=== PATIENT | female | born 1970 | race Caucasian/White ===

== ENCOUNTER → 2018-08-19 15:16 | Outpatient (CLI) | payer OTHER, SELFPAY ==
--- NOTE | 2018-08-19 15:18 | BI_ITS ---
MAMMOGRAPHY - BILATERAL SCREENING REASON FOR EXAM: Female, 47 years old. Routine annual screening examination. PERTINENT HISTORY: Mother with breast cancer. Prior left stereotactic breast biopsy. TECHNIQUE: Digital bilateral breast shana (3D mammographic acquisition) in the CC and MLO projections. 2-D mediolateral oblique (MLO) and craniocaudad (CC) views of both breasts were obtained. CAD: Full Field Digital Mammography with Computer Added Detection was performed. COMPARISON: Comparison is made with prior study dated June 25, 2015 and September 12, 2016. FINDINGS: Breast Composition: The breasts are heterogeneously dense, which may obscure small masses. There are no dominant masses or suspicious calcifications. 2 tissue markers are seen in the upper lateral aspect of the left breast. No other significant abnormalities are identified. There has been no significant change since the prior study. BI/SCREENING MAMM (CAD), BILAT IMPRESSION: Stable bilateral screening mammogram. Yearly follow-up mammogram recommended. (A) ASSESSMENT CATEGORY: BIRADS Category 2: Benign. A letter regarding these results will be sent to the patient by the facility within 30 days. Approximately 10% of breast cancers are not detected by mammography. A normal mammogram should not delay biopsy of a clinically suspicious abnormality. [id number] Electronically Signed: Albert Romero MD at 13:31 EDT Tel [phone], Service support ,
== END ==
PROVIDERS: Family Provider Family Medicine; PCP Family Medicine; Referring Provider Obstetrics & Gynecology; Visit Provider Obstetrics & Gynecology
DX: Z12.31 Encounter for screening mammogram for malignant neoplasm of breast (principal)
CPT/HCPCS: 77063; 77067

== ENCOUNTER 2018-10-18 09:30 | Outpatient (RCR) | payer OTHER, SELFPAY ==
--- NOTE | 2017-12-17 15:44 | MASS.EVAL_ITS ---
Massage Therapy Evaluation: Initial Evaluation Date: 12/17/2017 SUBJECTIVE: Marisa is a 47 year old female who was referred to the [facility] facility for a massotherapy evaluation by Dr. Todd Kimble with the diagnosis of migraine headaches. Marisa presents today with the symptoms of tension and pain in her neck shoulders and middle back. She reports having a medical history of migraines 4-5 a week several times a year. She has been hospitalized several times in the past due to migraines. She complains of neck tension and pain that radiates down her neck. She reports having minimal limitations during her daily activities currently. OBJECTIVE: Upon observation Marisa has poor posture with her head forward and shoulders forward from the neutral position in sitting and standing. After examination and palpation I found Marisa to have very high muscle tension with tenderness and myofascial restrictions in her sub occipitals, trapezius, rhomboids, scalenes and thoracic paraspinals. Her hips and lumbar region were also tight with tender points. The first treatment consisted of a one hour massage to her upper body with myofascial release, muscle stripping, trigger point compression techniques, and cervical manual traction. ASSESSMENT: I feel that Marisa is a good candidate for massotherapy at this time. She had a favorable response to the first treatment with reduction in her muscle aches, pain and tension. She also had improvement in her cervical flexibility. PLAN: The plan of care was reviewed with the patient. The patient is to be seen on as needed basis for a total of ten sessions with the recommendation of once every four weeks for a one hour treatment.
--- NOTE | 2018-10-23 12:11 | DS.PCM_ITS ---
Massage Therapy Discharge Summary: Discharge Date: 10/23/2018 Marisa was seen for a massotherapy evaluation on 12/17/2017 with the diagnosis of migraines. She was treated with ten sessions of massage therapy consisting of deep pressure soft tissue techniques, myofascial release and trigger point compression to her cervical, thoracic, lower back, upper extremities and hips. Marisa responded well to the therapy by reporting decreased tension and pain throughout her head, neck, shoulders, lower back and hips. Her goals for therapy were met throughout the treatment sessions. At this time this patient is being discharged from our care at [facility] facility.
== END 2018-10-18 19:00 | disposition home or self-care (01) ==
LOC: MASS 09:30
PROVIDERS: Family Provider Family Medicine; PCP Family Medicine; Visit Provider Family Medicine
DX: G43.909 Migraine, unspecified, not intractable, without status migrainosus (principal)
CPT/HCPCS: 97124

== ENCOUNTER → 2019-03-11 07:09 | Outpatient (CLI) | payer OTHER, SELFPAY ==
--- NOTE | 2019-03-11 11:50 | NEURO ---
NCS and/or EMG Patient Report Ordering Doctor: Edwin Flores DATE OF SERVICE: 03/11/19 This is a right upper extremity nerve conduction study performed on this 48-year-old female with a history of paresthesias in the third fourth and fifth digits of the right hand. There is no neck pain and the patient is healthy otherwise. Right upper extremity sensory and motor nerve conduction studies performed demonstrating moderate to severe prolongation of the median motor and sensory distal latencies with preservation of conduction velocities and amplitudes. The ulnar motor and sensory and the radial sensory responses are normal. The median and ulnar F-wave latencies are preserved. Impression is a abnormal nerve conduction study of the right upper extremityconsistenet with cts
--- NOTE | 2019-03-11 11:53 | NEURO_ITS ---
NCS and/or EMG Patient Report Ordering Doctor: Edwin Flores DATE OF SERVICE: 03/11/19 This is a right upper extremity nerve conduction study performed on this 48-year-old female with a history of paresthesias in the third fourth and fifth digits of the right hand. There is no neck pain and the patient is healthy othe rwise. Right upper extremity sensory and motor nerve conduction studies performed demonstrating moderate to severe prolongation of the median motor and sensory distal latencies with preservation of conduction velocities and amplitudes. The ulnar motor and sensory and the radial sensory responses are normal. The median and ulnar F-wave latencies are preserved. Impression is a abnormal nerve conduction study of the right upper extremityconsistenet with cts
--- NOTE | 2019-03-11 11:53 | NEURO ---
NCS and/or EMG Patient Report Ordering Doctor: Rich Rg Jr. DATE OF SERVICE: 03/11/19 This is a right upper extremity nerve conduction study performed on this 54-year-old female with symptoms in her right hand for 7 years, worse at night, no neck pain or history of diabetes. Right upper extremity sensory and motor nerve conduction studies performed. The median motor and sensory distal latency is prolonged with preservation of the amplitudes and conduction velocities. The ulnar motor and sensory and radial sensory responses are normal. The median F wave is mildly prolonged compared to the ulnar f wave. Impression this is an abnormal nerve conduction study of the right upper extremity consistent with moderate carpal tunnel syndrome at the right wrist.
--- NOTE | 2019-03-11 11:55 | NEURO ---
NCS and/or EMG Patient Report Ordering Doctor: Dorcas Tenorio DATE OF SERVICE: 03/11/19 This is a bilateral upper extremity nerve conduction study performed on this 46-year-old female with a history of weakness and pain in her hands for 6 months. Bilateral upper extremity sensory and motor nerve conduction studies were performed. There is severe prolongation of the right median motor distal latency with severe reduction of amplitude and conduction velocity and moderate prolongation of the left median motor distal latency with preservation of amplitude and conduction velocity. The median sensory responses are also prolonged more so on the right side. The ulnar motor and sensory and radial sensory responses are normal. The right median F wave is severely prolonged, the remainder of the F waves bilaterally are normal. Impression this is an abnormal nerve conduction study of the bilateral upper extremities consistent with severe carpal tunnel syndrome of the wrist on the right side, moderate on the left side.
== END ==
PROVIDERS: Family Provider Family Medicine; PCP Family Medicine; Referring Provider Psychiatry & Neurology Neurology; Visit Provider Psychiatry & Neurology Neurology
DX: G56.20 Lesion of ulnar nerve, unspecified upper limb (principal); R20.0 Anesthesia of skin; R20.2 Paresthesia of skin
CPT/HCPCS: 95910

== ENCOUNTER → 2019-04-11 13:28 | Outpatient (CLI) | payer OTHER, SELFPAY ==
--- NOTE | 2019-04-11 13:50 | RAD_ITS ---
STUDY: X-RAY - LUMBAR SPINE REASON FOR EXAM: Female, 48 years old. Low back pain radiating to left hip TECHNIQUE: 6 view(s) of the lumbar spine were obtained. COMPARISON: None FINDINGS: Normal lumbar lordosis. There is no substantial scoliosis. There is a normal alignment of the vertebrae. At L3-L4 L4-L5 there is mild spondylosis. Normal disc space heights. There are bilateral tubal ligation clips. There is a visualized spina bifida occulta at the level of L5 which is a normal variant. There is a rudimentary disc at S1-S2. RAD/L/S Spine Min 4 Views IMPRESSION: Mild degenerative change. Electronically Signed: Carol Duke MD at 16:11 EDT Tel , Service support ,
== END ==
PROVIDERS: Family Provider Family Medicine; PCP Family Medicine; Referring Provider Family Medicine; Visit Provider Family Medicine
DX: M54.5 Low back pain (principal)
CPT/HCPCS: 72110

== ENCOUNTER → 2019-06-04 11:00 | Outpatient (CLI) | payer OTHER, SELFPAY | PROVIDERS: Family Provider Family Medicine; PCP Family Medicine; Visit Provider Family Medicine | DX: R35.0 Frequency of micturition (principal) | CPT/HCPCS: 87086 ==

== ENCOUNTER 2019-06-04 13:00 | Outpatient (RCR) | payer OTHER, SELFPAY ==
--- NOTE | 2019-04-22 12:05 | HP.PTEVAL_ITS ---
Patient's Visit Information ALEKSEY DYE is a 48 year old F referred to Physical Therapy by Todd Kimble MD with a diagnosis of LUMBAR RADICULOPATHY. Date of Evaluation: 04/22/19 Physical Therapist: Jeanne Harris PT, Cert MDT - Visit Plan Frequency: 2-3x /Week Duration: 4-6 Weeks Plan: LUMBAR MODALITIES NEEDED. MCKENZIES' EXTENSION PRINCIPLE OF TREATMENT. POSTURE CORRECTION/STRENGTHENING, INSTRUCTION IN APPROPRIATE BODY MECHANICS AND ACTIVITY MODIFICATIONS. DLS STARTING WITH A NEUTRAL SPINE PROGRESSING ROM TOLERATED. ROBERT LE ROM, STRETCHING AND STRENGTHENING. HEP INSTRUCTION. 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 Disability: NO. Present symptoms: LOW BACK, LEFT BUTTOCK, WRAPS AROUND INNER THIGH (GROIN), [place] LEG AND LEFT FOOT HAS STARTED TO GO NUMB. FOOT NUMBNESS COMES AND GOES BUT ACHE IN THIGH IS ALWAYS THERE. Present since: ABOUT 3-4 WEEKS AGO BEFORE . Pain Scale: WORST 9/10, LEAST 2/10. Currently: 2/10. Commenced as a result of: PRESSURE WASHING HOUSE, SANDING DECK, STAINING DECK AND LAYING MULCH ALL IN A FEW DAYS. Symptoms at onset: LEFT BUTTOCK. Worse: PULLING PATIENTS FROM CART TO BED, BENDING, LIFTING, PUSHING CARTS DOWN THE MELCHOR, WORK, PUSH MOWING, GOING UP STEPS. Better: LYING ON THE FLOOR ON STOMACH AND STRECHING BACKWARDS, MEDROL DOSE MAQRUES HELPED A LOT, ANTIINFLAMMATORY, TENS, ICE. Disturbed sleep: YES. Previous history/Previous treatment: ONE OTHER EPISODE OF BACK PAIN THAT WAS SIMILAR BUT PAIN WENT DOWN THE BACK OF ONE OF HER LEGS - GOT BETTER WITH TIME - ABOUT 10 YEARS AGO. Coughing/sneezing/straining: NO. Gait: MUCH SLOWER THAN NORMAL. IT HURTS WHEN I WALK. LIMPING ON LLE. Difficulty initiating urinatin: NO. Accidents: NO. Unexplained weight loss: NO. Imaging: LUMBAR X-RAYS OF BACK AT [facility] - ARTHRITIC CHANGES AT L34 AND NARROWING L5S1. EXTRA LUMBAR VERTEBRAE. SPINA BIFIDA OCCULTA. PMH: HISTORY OF NECK PROBLEMS. MITRAL VALVE PROLAPSE. MIGRAINES. Recent major surgery: NO. PLOF (Prior Level of Function): UNLIMITED. OTHER: PATIENT REPORTS SHE HAS BEEN GOING TO A [facility] HER WHOLE LIFE FOR MIGRAINES. ALSO GETS MASSAGE ONCE A MONTH. LONG HISTORY OF [facility] WORKING ON LOW BACK. HAS HAD TWO CHIROPRACTIC ADJUSTMENTS ON LOW BACK THIS EPISODE AND PLANS TO CONTINUE. THINKS THE [facility]IROP[facility]CTOR IS HELPING BACK. - Objective Sitting/Standing Posture: FAIR. Lordosis: NORMAL. Lateral shift: NO. Relevant shift: N/A. Active Correction of posture: BETTER. Other Observations: INDEP GAIT WITH DECREASED CADANCE AND MILD LIMP ON RIGHT LE. DECREASED ROBERT STRIDE LENGTH. Motor deficit: LEFT HIP 4/5. RIGHT HIP 5/5. OTHERWISE LE'S 5/5. Sensory deficit: NO. ROM deficit: ROBERT LE'S WFL. Reflexes: 2/3 ROBERT LE'S. Dural Signs: POSITIVE ROBERT LE'S LEFT > RIGHT. Lumbar mvmt loss: flex - MOD. ext - MOD. R SG - MOD. L SG - MOD. PATIENT REPORTS INCREASED PAIN WITH LUMBAR FLEXION TESTING. Core strength: FAIR. Palpation: ACUTE TENDERNESS [id number] REGIONS - Goals Goal 1:: DECREASE C/O BACK AND LEFT LE SX'S. Goal Time Frame: 4-6 Weeks Goal 2:: IMPROVE PERSONAL CARE, LIFTING, WALKING, SITTING, STANDING, SLEEP, SOCIAL LIFE, TRAVEL AND YARD WORK/HOMEMAKING FUNCITON. Goal Time Frame: 4-6 Weeks Goal 3:: INSTRUCT IN PROPHYLAXIS Goal Time Frame: 4-6 Weeks - Rehabilitation Potential Rehabilitation Potential: Fair - Anticipated Interventions Patient/Client Instruction: Educate patient on: Condition, Plan of Care, Risk Factors, Benefits of Fitness Program For the Purpose of:: To improve self management Therapeutic Exercise to Include: Strength training, Body mechanics, Postural training, Flexibilty training, In an aquatic setting, Dynamic Lumbar Stabilization, Stanislav Exercises Comment: CONSIDER AQUATIC THERAPY For the Purpose of:: To decrease pain, To improve muscle performance and motor function, To increase tolerance to activity/condition/position, To improve ability of physical actions for home/community/work/leisure Manual Therapy Techniques to Include: Mobilization For the Purpose of:: To increase ROM TENS: Yes IF ES: Yes Cryotherapy (ice pack, ice massage): Yes Thermo therapy (hot pack): Yes Ultrasound (thermal/non thermal): Yes For the Purpose of:: To decrease pain, To decrease swelling/inflammation, To improve nutrient delivery to tissue Thank you for the opportunity to evaluate your patient. For Medicare and Medicare HMO plans, please review the plan of care and approve it. It will need to be FAXED BACK to us at [phone] for Medicare purposes. For Medicare only, by signing this I certify the plan of care. Please let me know if there are questions or concerns regarding this plan of care. Physician Signature: Date:
--- NOTE | 2019-06-04 13:38 | HP.PTDCSUM ---
HP - PT D/C Summary It has been my pleasure to treat ALEKSEY DYE under orders from Todd Kimble MD, for the diagnosis of LUMBAR RADICULOPATHY for a total of 9 visit(s). Discharge Date: Please see the following information for a summary of their discharge status. - Subjective Subjective: PATIENT REPORTS SHE IS DOING GOOD. ONLY A LITTLE BIT OF BACK PAIN AT THE END OF A SHIFT SOMETIMES. UP TO 3/10 LEFT LOW BACK PAIN AT ITS WORST NOW. - Pain LOW BACK Pain Intensity (Out of 10): 0 LEFT HIP Pain Intensity (Out of 10): 0 - Overall Improvement % Improvement: 95 - Objective Objective/Function: ALL GOALS MET. PATIENT HAS MADE GREAT PROGRESS WITH PT HOWEVER SHE DOES STILL HAVE MILD POSITIVE LLE DURAL SIGN AND INTERMITTENT PAIN IN HER LEFT LOW BACK/HIP/THIGH THAT SHE DID NOT HAVE BEFORE THIS ONSET OF PAIN. SHE WILL MONITOR AND FOLLOW UP WITH DR. LEIVA AGAIN IF IT DOES NOT CONTINUE TO IMPROVE AND RESOLVE. PATIENT COMMUNICATED A GOOD UNDERSTANDING OF ALL INSTRUCTIONS AFTER GIVEN. LUMBAR ROM IS WFL ALL PLANES NOW BUT SHE DOES HAVE MINIMAL MVMT LOSS INTO FLEXION THAT SHE REPORTS IS NORMAL FOR HER. LUMBAR OSWESTRY HAS IMPROVED FROM 19 TO 4 - Goals Goal 1:: DECREASE C/O BACK AND LEFT LE SX'S. Goal 2:: IMPROVE PERSONAL CARE, LIFTING, WALKING, SITTING, STANDING, SLEEP, SOCIAL LIFE, TRAVEL AND YARD WORK/HOMEMAKING FUNCITON. Goal 3:: INSTRUCT IN PROPHYLAXIS - Plan Plan: D/C TO INDEP EX. PATIENT AGREEABLE. - D/C Information If there are questions or concerns regarding this patient's physical therapy, please feel free to call me at [phone]. Thank you for the referral of this patient. Sincerely, Jeanne Harris, PT, Cert MDT
== END 2019-06-04 19:00 | disposition home or self-care (01) ==
LOC: PT 13:00
PROVIDERS: Family Provider Family Medicine; PCP Family Medicine; Referring Provider Family Medicine; Visit Provider Family Medicine
DX: M54.16 Radiculopathy, lumbar region (principal)
CPT/HCPCS: 97014; 97035; 97161; 97530; G0283

== ENCOUNTER → 2019-06-17 07:09 | Outpatient (CLI) | payer SELFPAY ==
--- NOTE | 2019-06-17 07:14 | CT_ITS ---
STUDY: CARDIAC CALCIUM SCORING - CT CHEST REASON FOR EXAM: Female, 48 years old. Family history of heart disease, screening RADIATION DOSAGE (If Supplied By Facility): CTDIvol = ( 12.19 ) mGy, DLP = ( 170.66 ) mGycm TECHNIQUE: Axial non-enhanced images were acquired through the heart for the sole purpose of measuring coronary artery calcium. Individualized dose optimization techniques were used for this CT. COMPARISON: None. FINDINGS: Visualized surrounding anatomy: 4 mm noncalcified nodule in the anterior left lower lobe is seen on image 13 of series 3. There is a calcified granuloma in the right lower lobe on image 27 of series 3. No additional pulmonary nodule detected. Left Main Coronary Artery: 0 Left Anterior Descending Artery: 0 Left Circumflex Artery: 0 Right Coronary Artery: 0 Other: 0 Total Calcium Score: 0 CT/Limited Chest CT w/CCTA IMPRESSION: 1. A Calcium Score of 0. No identifiable atherosclerotic plaque. Very low cardiovascular disease risk. 2. 4 mm left lower lobe noncalcified nodule. According to the Fleischner Society recommendations (2017) follow-up chest CT in one year recommended in high risk patients (known neoplasm history, smoking history). In low-risk patients, no specific follow-up per Guidelines. Electronically Signed: Salvador Duarte MD ([place]) at 14:19 EDT , Service support ,
[2019-06-17 07:16] VITALS: BP 125/59; PULSE 66; RESP 18; O2SAT 100; BMI 24.0
--- NOTE | 2019-06-17 19:59 | CA.SCORE ---
Calcium Scoring Date of Study:: 06/17/19 Coronary Calcium Scoring: High-resolution Computed Tomographic imaging of the chest was performed on 06/17/2019 with particular attention paid to the coronary arteries. Images from the examination were analyzed for the presence and extent of coronary artery calcification , using coronary calcium quantification software. The patient tolerated the procedure well and there were no complications. The results of the coronary calcification analysis are provided below. - Findings Left Main (LM): 0 Left Anterior Descending (LAD): 0 Left Circumflex (LCX): 0 Right Coronary Artery (RCA): 0 Total Agatston Score: 0 Percentile Ranking: Percentile rankin%: 50% of people of the same gender/similar age had the same or lower scores Calcium Scoring Interpretation: 0 No identifiable atherosclerotic plaque. Very low cardiovascular disease risk. <5% chance of presence coronary artery disease A Negative Examination 1-10 Minimal Plaque burden. Significant coronary artery disease very unlikely. 11-100 Mild plaque burden. Likely mild or minimal coronary atherosclerosis. 101-400 Moderate plaque burden Moderate non-obstructive coronary artery disease highly likely. Over 400 Extensive plaque burden. High likelihood of at least one significant coronary stenosis (>50% diameter) Calcium Score: 0 Negative Examination - Continue cardiovascular risk factor evaluation and care as deemed appropriate
== END ==
PROVIDERS: Family Provider Family Medicine; PCP Family Medicine; Referring Provider Family Medicine; Visit Provider Family Medicine
DX: Z13.9 Encounter for screening, unspecified (principal)
CPT/HCPCS: 75571; 76380

== ENCOUNTER → 2019-08-28 11:59 | Outpatient (CLI) | payer OTHER, SELFPAY ==
[2019-06-17 07:16] VITALS: BMI 24.0
--- NOTE | 2019-08-28 12:02 | MRI_ITS ---
STUDY: MRI LUMBAR SPINE WITHOUT CONTRAST REASON FOR EXAM: Female, 48 years old. The patient presents with a history of radiculopathy symptoms of the left leg with pain. TECHNIQUE: Standardized fat and water weighted pulse sequences were obtained in the sagittal and axial planes. COMPARISON: X-RAY LUMBAR SPINE-April 11, 2019 FINDINGS: Vertebrae, Alignment and Curvature Vertebrae: There are six non-rib bearing lumbar-like vertebra. For the purpose of this report, the most caudal non-rib bearing vertebra is considered to represent the S1 vertebra, consistent with lumbarization of the first sacral segment. The x-ray examination of April 11, 2019 further discloses a transitional lumbosacral vertebra. Alignment: Normal. Curvature: Normal lordosis. No scoliosis. Thoracic Cord (visualized distal) / Conus Medullaris Normal. Terminates at the at the superior endplate of the L2 vertebra. Disc Space Levels N.B.: Normal level statement indicates: Normal endplates; disc height, signal and morphology; facet joints; central canal, lateral recesses, and intervertebral neuroformina. T12-L1: Normal. (Imaged only in the sagittal plane). L1-L2: Normal. (Imaged only in the sagittal plane). L2-L3: Normal. L3-L4: Normal. L4-L5: Normal. L5-S1: Normal. S1-2: There is lumbarization of the S1 vertebra with a rudimentary desiccated S1-2 intervertebral disc. There is a posterior central disc herniation of the protrusion type (axial T2 series 5, image 5; sagittal T2 series 2, image 7). The disc protrusion measures 4 x 14 mm (AP x transverse), and is producing minimal ventral epidural fat effacement and thecal sac flattening. There remains a large central canal. There is mild bilateral facet arthrosis however the bilateral intervertebral neural foramina are widely patent. There is no demonstrated spondylolisthesis, spondylolysis or marrow pedicle stress phenomena. Sacral Alae: Normal. Retroperitoneum and Paraspinal Structures Kidneys: Partially imaged with no demonstrated abnormality. Aorta: Normal. Inferior Vena Cava: Normal. Lymph Nodes: None visualized. Muscles (Paraspinal): Normal. MRI/Spine Lumbar (Routine) IMPRESSION: 1. There are six non-rib bearing lumbar-like vertebra. For the purpose of this report, the most caudal non-rib bearing vertebra is considered to represent the S1 vertebra, consistent with lumbarization of the first sacral segment. The x-ray examination of April 11, 2019 further discloses a transitional lumbosacral vertebra. 2. S1-2 rudimentary desiccated intervertebral disc with a posterior central disc protrusion producing minimal ventral epidural fat effacement of thecal sac flattening but without neural impingement. Electronically Signed: Rich Jacobo DO at 14:30 EDT Tel , Service support ,
== END ==
PROVIDERS: Family Provider Family Medicine; PCP Family Medicine; Referring Provider Family Medicine; Visit Provider Family Medicine
DX: M51.16 Intervertebral disc disorders with radiculopathy, lumbar region (principal)
CPT/HCPCS: 72148

== ENCOUNTER → 2019-10-01 11:35 | Outpatient (CLI) | payer OTHER, SELFPAY ==
[2019-06-17 07:16] VITALS: BMI 24.0
[2019-10-06 12:07] LABS: Age Gdln ACOG Testing 30-65 (.)
[2019-10-06 16:30] LABS: HPV APTIMA, High Risk Negative (Negative)
[2019-10-06 16:31] LABS: HPV Reflexed? NOT INDICATED
== END ==
PROVIDERS: Visit Provider Obstetrics & Gynecology
DX: Z12.4 Encounter for screening for malignant neoplasm of cervix (principal)
CPT/HCPCS: 88175; G0145

== ENCOUNTER 2019-10-08 08:15 | Outpatient (RCR) | payer OTHER, SELFPAY ==
--- NOTE | 2018-12-11 11:46 | MASS.EVAL ---
Massage Therapy Evaluation: INITIAL EVALUATION: DATE:12/11/2018 PT NAME: ALEKSEY DYE : 1970 V#: [id number] REFERRING PHYS: DR. DEJESUS SUBJECTIVE: ALEKSEY IS A 47 YEAR OLD FEMALE WHOSE CURRENT OCCUPATION IS [employer]. SHE WAS REFERRED TO [facility] FOR A MASSOTHERAPY EVALUATION BY DR. DEJESUS WITH THE DIAGNOSIS OF MIGRAINES AND NECK PAIN. SHE PRESENTS TODAY WITH THE SYMPTOMS OF NECK PAIN AND NUMBNESS IN RIGHT ARM. SHE REPORTED OF NO MIGRAINE TODAY BUT HAS BEEN GETTING LESS, ONLY 3-5 MIGRAINES PER MONTH. THE SYMPTOMS COMMENCED DUE TO OF UNKNOWN FOR THE MIGRAINES AND NECK PAIN OF STRESS. SHE RATES HER OVERALL HEALTH TO BE IN GOOD CONDITION WITH NO LIMITATIONS IN HER DAILY ACTIVITIES UNLESS SHE HAS A MIGRAINE. ALEKSEY IS CURRENTLY TAKING MULTIVITAMIN, CALCIUM, DE/PAY-PRN MEDICATIONS. OBJECTIVE: THE FIRST TREATMENT CONSISTED OF A DEEP TISSUE UPPER BODY MASSAGE. I FOCUSED ON SUBOCCIPITALS, TEMPORALIS, UPPER TRAPEZIUM, LEVATOR, RHOMBOIDS, SCALENES, AND INFRASPINATUS. MUSCLE STRIPPING AND TRIGGER POINT THERAPY WERE PERFORMED. ASSESSMENT: MUSCLE TENSION WAS HIGH IN THE CERVICAL AND THORACIC AREAS. MOST TENDERNESS WITH TRIGGER POINTS WAS THE RIGHT TEMPORALIS, SUBOCCIPITALS, LEVATOR, RHOMBOIDS, AND RIGHT INFRASPINATUS. THE RIGHT INFRASPINATUS DID REFER INTO THE RIGHT ARM NUMBNESS THAT THE PATIENT HAS BEEN EXPERIENCING. OVERALL I FEEL THE MUSCLE TENSION AND STRESS LEVEL DECREASED POST THE MASSAGE. I FEEL THAT ALEKSEY IS A GREAT CANDIDATE FOR MASSOTHERAPY AT THIS TIME. PLAN: THE PLAN OF CARE WAS REVIEWED WITH THE PATIENT. THE PATIENT IS TO BE SEEN ON A REGULAR BASIS FOR A TOTAL OF 10 VISITS FOR ONE HOUR SESSIONS OF MASSOTHERAPY.
--- NOTE | 2018-12-11 11:58 | MASS.EVAL_ITS ---
Massage Therapy Evaluation: INITIAL EVALUATION: DATE:12/11/2018 PT NAME: ALEKSEY DYE : 1970 V#: [id number] REFERRING PHYS: DR. DEJESUS SUBJECTIVE: ALEKSEY IS A 47 YEAR OLD FEMALE WHOSE CURRENT OCCUPATION IS [employer] SHE WAS REFERRED TO [facility] FOR A MASSOTHERAPY EVALUATION BY DR. DEJESUS WITH THE DIAGNOSIS OF MIGRAINES AND NECK PAIN. SHE PRESENTS TODAY WITH THE SYMPTOMS OF NECK PAIN AND NUMBNESS IN RIGHT ARM. SHE REPORTED OF NO MIGRAINE TODAY BUT HAS BEEN GETTING LESS, ONLY 3-5 MIGRAINES PER MONTH. THE SYMPTOMS COMMENCED DUE TO OF UNKNOWN FOR THE MIGRAINES AND NECK PAIN OF STRESS. SHE RATES HER OVERALL HEALTH TO BE IN GOOD CONDITION WITH NO LIMITATIONS IN HER DAILY ACTIVITIES UNLESS SHE HAS A MIGRAINE. ALEKSEY IS CURRENTLY TAKING MULTIVITAMIN, CALCIUM, DE/PAY-PRN MEDICATIONS. OBJECTIVE: THE FIRST TREATMENT CONSISTED OF A DEEP TISSUE UPPER BODY MASSAGE. I FOCUSED ON SUBOCCIPITALS, TEMPORALIS, UPPER TRAPEZIUM, LEVATOR, RHOMBOIDS, SCALENES, AND INFRASPINATUS. MUSCLE STRIPPING AND TRIGGER POINT THERAPY WERE PERFORMED. ASSESSMENT: MUSCLE TENSION WAS HIGH IN THE CERVICAL AND THORACIC AREAS. MOST TENDERNESS WITH TRIGGER POINTS WAS THE RIGHT TEMPORALIS, SUBOCCIPITALS, LEVATOR, RHOMBOIDS, AND RIGHT INFRASPINATUS. THE RIGHT INFRASPINATUS DID REFER INTO THE RIGHT ARM NUMBNESS THAT THE PATIENT HAS BEEN EXPERIENCING. OVERALL I FEEL THE MUSCLE TENSION AND STRESS LEVEL DECREASED POST THE MASSAGE. I FEEL THAT ALEKSEY IS A GREAT CANDIDATE FOR MASSOTHERAPY AT THIS TIME. PLAN: THE PLAN OF CARE WAS REVIEWED WITH THE PATIENT. THE PATIENT IS TO BE SEEN ON A REGULAR BASIS FOR A TOTAL OF 10 VISITS FOR ONE HOUR SESSIONS OF MASSOTHERAPY.
--- NOTE | 2019-10-08 16:05 | DS.PCM_ITS ---
Massage Therapy Discharge Summary: Discharge Date: 10/08/2019 Marisa was seen for a massotherapy evaluation on 12/11/2018 with the headaches and neck pain. She was treated with ten sessions of massage therapy consisting of moderate to deep pressure soft tissue techniques, myofascial release and trigger point compression to her cervical, thoracic, lower back, upper extremities, hips and lower extremities. Mraisa responded well to the therapy by reporting decreased tension and pain throughout his head, neck, shoulders, lower back and hips. Her goals for therapy were met throughout the treatment sessions. At this time this patient is being discharged from our care at [facility] facility.
== END 2019-10-08 19:00 | disposition home or self-care (01) ==
LOC: MASS 08:15
PROVIDERS: Family Provider Family Medicine; PCP Family Medicine; Referring Provider Family Medicine; Visit Provider Family Medicine
DX: G43.909 Migraine, unspecified, not intractable, without status migrainosus (principal)
CPT/HCPCS: 97124

== ENCOUNTER → 2019-10-09 09:26 | Outpatient (CLI) | payer OTHER, SELFPAY ==
[2019-06-17 07:16] VITALS: BMI 24.0
--- NOTE | 2019-10-09 09:31 | BI_ITS ---
MAMMOGRAPHY - BILATERAL SCREENING REASON FOR EXAM: Female, 48 years old. Routine annual screening examination. PERTINENT HISTORY: Mother with breast cancer. Remote left stereotactic biopsy. TECHNIQUE: Digital bilateral breast estefany (3D mammographic acquisition) in the CC and MLO projections. 2-D mediolateral oblique (MLO) and craniocaudad (CC) views of both breasts were obtained. CAD: Full Field Digital Mammography with Computer Added Detection was performed. COMPARISON: Comparison is made with prior study dated August 19, 2018 and September 12, 2016. FINDINGS: Breast Composition: The breasts are extremely dense, which lowers the sensitivity of mammography. There are no dominant masses or suspicious calcifications. 2 tissue markers are seen in the upper lateral portion of the left breast. No other significant abnormalities are identified. There has been no significant change since the prior study. BI/SCREEN MAMM (CAD) W/ESTEFANY BILAT IMPRESSION: Stable bilateral screening mammogram. Yearly follow-up mammogram recommended. (A) ASSESSMENT CATEGORY: BIRADS Category 2: Benign. A letter regarding these results will be sent to the patient by the facility within 30 days. Approximately 10% of breast cancers are not detected by mammography. A normal mammogram should not delay biopsy of a clinically suspicious abnormality. [id number] Electronically Signed: Albert Romero, at 11:28 EST , Service support ,
== END ==
PROVIDERS: Family Provider Family Medicine; PCP Family Medicine; Referring Provider Obstetrics & Gynecology; Visit Provider Obstetrics & Gynecology
DX: Z12.31 Encounter for screening mammogram for malignant neoplasm of breast (principal)
CPT/HCPCS: 77063; 77067

== ENCOUNTER → 2020-05-20 05:57 | Outpatient (CLI) | payer OTHER, SELFPAY ==
[2019-06-17 07:16] VITALS: BMI 24.0
[2020-05-20 08:40] LABS: Magnesium 2.3 mg/dL (1.6-2.6); T4 Free Direct 1.02 ng/dL (0.76-1.46); Thyroid Stim Hormone (TSH) 2.13 uIU/mL (0.358-3.74)
== END ==
PROVIDERS: PCP Family Medicine; Referring Provider Family Medicine; Visit Provider Family Medicine
DX: R55 Syncope and collapse (principal); R60.9 Edema, unspecified; R00.2 Palpitations
CPT/HCPCS: 36415; 83735; 84439; 84443

== ENCOUNTER → 2020-06-16 11:54 | Outpatient (CLI) | payer OTHER, SELFPAY ==
[2020-06-03 14:29] VITALS: BMI 26.6
--- NOTE | 2020-06-16 11:54 | ECHOD_ITS ---
Reason For Study: Arrhythmia Procedure This was a 2D Doppler, Color Flow transthoracic echocardiogram. Exam performed in department. Left Ventricle Normal LV size. Left ventricular systolic function is normal. The estimated ejection fraction is 60 %. No evidence for diastolic dysfunction. No regional wall motion abnormalities noted. Right Ventricle Normal RV size. Normal systolic function. Atria Normal left atrium. Normal right atrium. Mitral Valve Equivocal mitral valve prolapse. Tricuspid Valve Normal tricuspid valve. Aortic Valve Normal aortic valve. Trisinus/trileaflet aortic valve. Pulmonic Valve Normal pulmonic valve. Great Vessels Normal aortic root. The pulmonary artery is normal size. Normal inferior vena cava. Pericardium/Pleural No pericardial effusion. MMode/2D Measurements & Calculations LVIDd: 3.8 cm IVSd: 0.80 cm Ao root diam: 2.5 cm LVIDs: 2.1 cm LVPWd: 1.1 cm LA dimension: 3.1 cm RVDd: 2.3 cm FS: 45.9 % LAV(MOD-bp): 26.1 ml LA A4 area: 12.0 cm2 RA A4 area: 7.6 cm2 LAV(MOD-bp) Indexed: 15.2 ml/m2 LAV(MOD-sp2): 28.2 ml LAV(MOD-sp4): 24.4 ml Time Measurements MV dec time: 0.18 sec Doppler Measurements & Calculations MV E max maverick: 78.5 cm/sec Lat Peak E' Maverick: 8.3 cm/sec Med Peak E' Maverick: 10.3 cm/sec MV A max maverick: 66.8 cm/sec E/E' lat: 9.4 E/E' med: 7.6 MV E/A: 1.2 MV V2 max: 91.2 cm/sec MV P1/2t max maverick: 90.6 cm/sec Ao V2 max: 141.9 cm/sec MV max P.3 mmHg MV P1/2t: 49.9 msec Ao max P.1 mmHg MV V2 mean: 52.2 cm/sec MV dec slope: 531.9 cm/sec2 Ao V2 mean: 96.9 cm/sec MV mean P.3 mmHg MVA(P1/2t): 4.4 cm2 Ao mean P.4 mmHg MV V2 VTI: 18.0 cm Ao V2 VTI: 26.9 cm LV V1 max: 111.3 cm/sec PA V2 max: 100.2 cm/sec TR max maverick: 218.4 cm/sec LV V1 max P.0 mmHg TR max P.1 mmHg LV V1 mean P.6 mmHg LV V1 mean: 74.2 cm/sec LV V1 VTI: 22.4 cm Interpretation Summary Normal LV size. Left ventricular systolic function is normal. The estimated ejection fraction is 60 %. No evidence for diastolic dysfunction. Equivocal mitral valve prolapse. Ordering Physician: Glynn Monique Referring Physician: Todd Kimble Performed By: Juan M Lewis RCS
--- NOTE | 2020-06-16 17:36 | STRESSREP ---
Stress Test Report Exercise stress test. 49-year-old lady with a history of chest pain. Stress protocol: Resting EKG demonstrates normal sinus rhythm with a rate of 75 bpm normal intervals are noted resting blood pressure is 124/80 mmHg. The patient exercised according to regular Flavio protocol for a total duration of 9 minutes. Patient completed stage III of the Flavio protocol. The maximum heart rate attained was 162 bpm which was 94% of maximum predicted heart rate the maximum workload was 10.1 metabolic equivalents. At rest there were no ST or T wave changes noted suggest ischemia. The patient maintained sinus rhythm throughout the recording. The resting blood pressure is 124/80 with a final blood pressure 140/84 mmHg which was a normal response to exercise the rate-pressure product was 22,600. No clinical angina was noted the test was terminated due to dyspnea and attainment of target heart rate. Conclusion: Exercise stress test with no EKG criteria for ischemia at a high workload Excellent functional capacity. No clinical angina noted.
== END ==
PROVIDERS: PCP Family Medicine; Referring Provider Internal Medicine Cardiovascular Disease; Visit Provider Internal Medicine Cardiovascular Disease
DX: I34.1 Nonrheumatic mitral (valve) prolapse (principal); R00.2 Palpitations
CPT/HCPCS: 93017; 93306

== ENCOUNTER → 2020-07-20 15:20 | Outpatient (CLI) | payer OTHER, SELFPAY ==
[2020-06-03 14:29] VITALS: BMI 26.6
--- NOTE | 2020-07-20 15:30 | CT_ITS ---
STUDY: CT CHEST WITHOUT CONTRAST REASON FOR EXAM: Female, 49 years old. PULMONARY NODULE FOLLOW UP RADIATION DOSAGE (If Supplied By Facility): CTDIvol = ( 8.10 ) mGy, DLP = ( 309.52 ) mGycm TECHNIQUE: Transaxial imaging was performed without the administration of intravenous contrast material. Multiplanar coronal and sagittal images were reformatted. Individualized dose optimization techniques were used for this CT. COMPARISON: Comparison is made with prior examination dated 06/17/2019. FINDINGS: Mild prominence of the thyroid gland. Minimal degree of scarring at both lung apices. Calcified granuloma in the anterior aspect of the right lower lobe. Stable partially calcified 4 mm nodule in the anterior left lower lobe. There is no demonstrated pleural abnormality. Normal heart and pericardium. Normal mediastinum. Normal hilar regions. Normal unenhanced pulmonary arteries. Normal aorta arch and descending thoracic aorta. Normal osseous structures. There is no demonstrated abnormality of the visualized upper abdomen. CT/Chest without Contrast IMPRESSION: Stable examination. Electronically Signed: Albert Romero, at 15:47 EDT , Service support ,
== END ==
PROVIDERS: PCP Family Medicine; Referring Provider Family Medicine; Visit Provider Family Medicine
DX: R91.1 Solitary pulmonary nodule (principal)
CPT/HCPCS: 71250

== ENCOUNTER 2020-10-06 09:30 | Outpatient (RCR) | payer OTHER, SELFPAY ==
[2019-06-17 07:16] VITALS: BMI 24.0
--- NOTE | 2019-12-03 14:38 | MASS.EVAL ---
Massage Therapy Evaluation: Initial Evaluation Date: 12/03/2019 /Age: 02 1970, 41 Diagnosis: Migraines Medications: Amovig injection Botox Relpax Goals: Decrease pain Decrease frequency and intensity of PERKINS/Migraine Assessment: Marisa is a good candidate for massage. We have had success managing her symptoms in the past. Plan: To be seen one time per month or PRN for a total of 10 one hour sessions.
--- NOTE | 2020-10-14 11:55 | MASS.DISCH ---
Massage Therapy Discharge Summary: Discharge Date: 10/14/2020 Marisa was seen for a massotherapy evaluation on 12/03/2019 with the diagnosis of migraines. She was treated with eight sessions of massage therapy consisting of deep pressure soft tissue techniques, myofascial release and trigger point compression to her cervical, thoracic, lower back, and hips. Marisa responded well to the therapy by reporting decreased tension and pain throughout her neck, shoulders, lower back and hips. Her goals for therapy were met throughout the treatment sessions. At this time this patient is being discharged from our care at [facility] facility.
== END 2020-10-06 19:00 | disposition home or self-care (01) ==
LOC: MASS 09:30
PROVIDERS: Family Provider Family Medicine; PCP Family Medicine; Referring Provider Family Medicine; Visit Provider Family Medicine
DX: G43.909 Migraine, unspecified, not intractable, without status migrainosus (principal)
CPT/HCPCS: 97124

== ENCOUNTER → 2020-10-12 13:14 | Outpatient (CLI) | payer OTHER, SELFPAY ==
[2020-10-08 12:25] VITALS: BMI 26.7
--- NOTE | 2020-10-12 13:15 | BI_ITS ---
MAMMOGRAPHY - BILATERAL SCREENING REASON FOR EXAM: Female, 49 years old. Routine annual screening examination. PERTINENT HISTORY: Mother with breast cancer. Remote left stereotactic biopsy. TECHNIQUE: Digital bilateral breast estefany (3D mammographic acquisition) in the CC and MLO projections. 2-D mediolateral oblique (MLO) and craniocaudad (CC) views of both breasts were obtained. CAD: Full Field Digital Mammography with Computer Added Detection was performed. COMPARISON: Comparison is made with prior examination dated 10/09/2019 and 08/19/2018. FINDINGS: Breast Composition: The breasts are extremely dense, which lowers the sensitivity of mammography. There are no dominant masses or suspicious calcifications. Once again, 2 tissue markers are seen in the upper quadrant of the left breast. No other significant abnormalities are identified. There has been no significant change since the prior study. BI/SCREEN MAMM (CAD) W/ESTEFANY BILAT IMPRESSION: Stable bilateral screening mammogram. Yearly follow-up mammogram recommended. (A) ASSESSMENT CATEGORY: BIRADS Category 2: Benign. A letter regarding these results will be sent to the patient by the facility within 30 days. Approximately 10% of breast cancers are not detected by mammography. A normal mammogram should not delay biopsy of a clinically suspicious abnormality. [id number] Electronically Signed: Albert Romero, at 14:08 EST , Service support ,
== END ==
PROVIDERS: PCP Family Medicine; Referring Provider Obstetrics & Gynecology; Visit Provider Obstetrics & Gynecology
DX: Z12.31 Encounter for screening mammogram for malignant neoplasm of breast (principal); Z80.3 Family history of malignant neoplasm of breast
CPT/HCPCS: 77063; 77067

== ENCOUNTER → 2021-08-23 11:41 | Outpatient (CLI) | payer OTHER, SELFPAY ==
--- NOTE | 2021-08-23 11:50 | MRI_ITS ---
STUDY: MRI LEFT FOREFOOT WITHOUT CONTRAST REASON FOR EXAM: Pain at the distal second metatarsal/metatarsophalangeal joint for one year. TECHNIQUE: Standardized fat and water weighted pulse sequences were obtained in all 3 orthogonal planes. COMPARISON: None. FINDINGS: Normal metatarsophalangeal joint of the hallux. There is very mild tibial sesamoiditis (inversion recovery sagittal image 22). Normal fibular sesamoid. Normal interphalangeal joint of the hallux. Normal proximal and distal phalanges of the great toe. Normal medial and lateral heads of the flexor hallucis brevis tendons. Normal flexor and extensor hallucis longus tendons. 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 Normal third through fifth metatarsophalangeal (MTP) joints. Normal interphalangeal joints of the second through fifth toes. There is mild bone edema of the proximal/mid second proximal phalanx (inversion recovery sagittal image 16). Normal proximal, middle and distal phalanges of the third through fifth toes. Normal first through fourth intermetatarsal spaces. Normal flexor and extensor tendons of the second through fifth toes. Normal metatarsals. Normal intrinsic muscles of the forefoot. There is a small ganglion cyst dorsal to the interosseous muscles of the between the distal second and third metatarsals (inversion recovery series 5 image 19) measuring 0.7 cm in AP dimension. 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 Mild bone edema of the second proximal phalanx. Small ganglion cyst dorsal to the interosseous muscles between the distal second and third metatarsals. Very mild tibial sesamoiditis. Electronically Signed: Cedric Haddad MD at 12:49 EDT Tel , Service support ,
== END ==
PROVIDERS: PCP Family Medicine; Referring Provider Podiatrist; Visit Provider Podiatrist
DX: M77.42 Metatarsalgia, left foot (principal)
CPT/HCPCS: 73718

== ENCOUNTER 2021-09-21 12:15 | Outpatient (RCR) | payer OTHER, SELFPAY ==
[2020-10-08 12:25] VITALS: BMI 26.7
--- NOTE | 2020-12-02 08:43 | MASS.EVAL ---
Massage Therapy Evaluation: INITIAL EVALUATION DATE: 11/24/2020 PT NAME: ALEKSEY DYE : 70 V#: [id number] REF PHYS: DR. DEJESUS SUBJECTIVE: ALEKESY IS A 49 YEAR OLD FEMALE WHOSE CURRENT OCCUPATION IS [employer]. SHE WAS REFERRED TO [facility] FOR A MASSOTHERAPY EVALUATION BT DR. DEJESUS WITH THE DIAGNOSIS OF MIGRAINES. SHE PRESENTS TODAY WITH JUST TENSION IN THE NECK AND SHOULDERS. SHE SAID THAT SHE JUST HAD A MIGRAINE A WEEK AGO WHERE SHE VOMITED FOR 6 HOURS BECAUSE OF THE PAIN AND PRESSURE. ALEKSEY REPORTED THAT SHE CAN GET UP TO 2 MIGRAINES A MONTH, WHICH HAS IMPROVED SOME OVER THE YEARS. OVERALL, ALEKSEY RATES HER HEALTH TO BE IN GOOD CONDITION. THE MEDICATIONS LISTED IS AIMOVIG, BOTOX - MIGRAINES, AND RELPAX. OBJECTIVE: THE FIRST TREATMENT CONSISTED OF A ONE HOUR, UPPER BODY, DEEP TISSUE MASSAGE. DURING THE FIRST TREATMENT, THE FOCUS WAS ON TEMPORALIS, SUBOCCIPITALS, LEVATOR, SCALENES, UPPER TRAPEZIUM, AND RHOMBOIDS. MUSCLE STRIPPING, TRIGGER POINT THERAPY, AND NECK STRETCHES WERE PERFORMED. ASSESSMENT: MUSCLE TENSION WAS VERY HIGH DURING PALPATION. THE MOST TENDERNESS SPOT IS THE SUBOCCIPITALS. THAT IS WHERE THE PATIENT FEELS ALOT OF TENSION AND PAIN. THE LEFT SIDE SEEMED MORE TENSION AND KNOTTED THAN THE RIGHT SIDE. MYOFASCIAL WAS LESS MOVING ON THE LEFT SIDE WELL. THE PATIENT SEEMED TO RELAX AND THE STRESS LEVEL SEEMED TO DECREASE POST THE MASSAGE. I FEEL THE PATIENT IS A GREAT CANDIDATE FOR MASSOTHERAPY AT THIS TIME. PLAN: THE PLAN OF CARE WAS REVIEWED WITH THE PATIENT. THE PATIENT IS TO BE SEEN ON A REGULAR BASIS FOR ONE HOUR SESSIONS OF MASSOTHERAPY FOR A TOTAL OF 10 SESSIONS AT THIS TIME.
--- NOTE | 2021-10-06 18:25 | DS.PCM_ITS ---
Massage Therapy Discharge Summary: Discharge Date: 10/06/2021 Marisa was seen for a massotherapy evaluation on 11/24/2020 with the diagnosis of migraines. She was treated with ten sessions of massage therapy consisting of deep pressure soft tissue techniques, myofascial release and trigger point compression to his cervical, thoracic, lower back and hips. Marisa responded well to the therapy by reporting decreased tension and pain throughout her neck, shoulders, lower back and hips. Her goals for therapy were met throughout the treatment sessions. At this time this patient is being discharged from our care at [facility] facility.
== END 2021-09-21 19:00 | disposition home or self-care (01) ==
LOC: MASS 12:15
PROVIDERS: PCP Family Medicine; Referring Provider Family Medicine; Visit Provider Family Medicine
DX: R51.9 Headache, unspecified (principal)
CPT/HCPCS: 97124

== ENCOUNTER 2021-10-25 09:18 | Outpatient (CLI) | payer OTHER, SELFPAY ==
[2021-10-25] MEDS: 0.9% Saline Lock 10 ML Syringe IV (09:35)
[2021-10-25 09:37] VITALS: BP 138/67; PULSE 71; RESP 16; TEMP 37.1; O2SAT 100; BMI 27.1
[2021-10-25 10:32] VITALS: BP 120/65; PULSE 74; RESP 16; TEMP 36.7; O2SAT 100
[2021-10-25 11:24] VITALS: BP 136/52; PULSE 80; RESP 16; TEMP 36.4; O2SAT 100
== END 2021-10-25 11:35 | disposition home or self-care (01) ==
LOC: MS3OUT 09:19 → MS3 09:19
PROVIDERS: PCP Family Medicine; Referring Provider Nurse Practitioner Adult Health; Visit Provider Nurse Practitioner Adult Health
DX: Z23 Encounter for immunization (principal); U07.1 COVID-19
CPT/HCPCS: J7050; M0245; Q0245; A4216

== ENCOUNTER 2021-11-22 10:31 | Outpatient (CLI) | payer OTHER, SELFPAY ==
--- NOTE | 2021-11-22 10:33 | BI_ITS ---
MAMMOGRAPHY - BILATERAL SCREENING REASON FOR EXAM: Female, 50 years old. Routine annual screening examination. PERTINENT HISTORY: Mother with breast cancer. Prior left breast biopsies. TECHNIQUE: Digital bilateral breast estefany (3D mammographic acquisition) in the CC and MLO projections. 2-D mediolateral oblique (MLO) and craniocaudad (CC) views of both breasts were obtained. CAD: Full Field Digital Mammography with Computer Added Detection was performed. COMPARISON: Comparison is made with prior study dated 10/12/2020 and 10/09/2019. FINDINGS: Breast Composition: The breasts are heterogeneously dense, which may obscure small masses. There are no dominant masses or suspicious calcifications. 2 tissue clip marker is once again seen in the upper lateral quadrant of the left breast. Since prior study, there has been a minimal increase in the number of microcalcifications although no focal clusters seen. No other significant abnormalities are identified. BI/SCRN MAMM (CAD)W/ESTEFANY BILAT IMPRESSION: Status post biopsy in the left upper outer quadrant. Minimal increased calcifications at the biopsy site. Yearly follow-up mammogram recommended. (A) ASSESSMENT CATEGORY: BIRADS Category 2: Benign. A letter regarding these results will be sent to the patient by the facility within 30 days. Approximately 10% of breast cancers are not detected by mammography. A normal mammogram should not delay biopsy of a clinically suspicious abnormality. [id number] Electronically Signed: Albert Romero MD at 12:09 EST ,
== END 2021-11-22 23:59 | disposition short-term general hospital (02) ==
LOC: OPBI 10:32
PROVIDERS: PCP Family Medicine; Referring Provider Obstetrics & Gynecology; Visit Provider Obstetrics & Gynecology
DX: Z12.31 Encounter for screening mammogram for malignant neoplasm of breast (principal); Z80.3 Family history of malignant neoplasm of breast
CPT/HCPCS: 77063; 77067

== ENCOUNTER → 2022-05-30 | Outpatient (CLI) | payer OTHER, SELFPAY ==
--- NOTE | 2022-05-30 14:38 | CT_ITS ---
INDICATION: MIGRAINES. PATEINT GETS BOTOX SHOTS IN FOREHEAD EVERY 3 MONTHS X 5 YEARS, NOW DEVELOPED A BUMP ON LEFT FOREHEAD WHICH THERE ARE SOME SCREEN SAVES OF AREA. EXAMINATION: CT BRAIN - CT Head or Brain W/O Contrast Injection TECHNIQUE: Multiple axial images were obtained of the head without intravenous contrast. A radiation dose optimization technique was used for this scan. IV Contrast dosage and agent: None. COMPARISON: 09/19/2015 FINDINGS: BRAIN PARENCHYMA: No intra- or extra-axial hemorrhage. No evidence of acute infarct. No intracranial mass or mass effect. There is preservation of the rodriguez/white matter interface. Posterior fossa structures are unremarkable. CSF SPACES: Appropriate for age. No hydrocephalus. Basal cisterns are patent. CALVARIUM, SKULL BASE, PARANASAL SINUSES AND MASTOID AIR CELLS: Clear. No discrete lytic or blastic abnormalities. ORBITS: Both globes, extraocular muscles, optic nerves and retrobulbar fat appear unremarkable. No abnormalities are visualized in the frontal bones. No evidence of subcutaneous scalp soft tissue masses is seen. CT/Brain/Head without Contrast IMPRESSION: No evidence of intracranial or extracranial abnormality is seen. Electronically Signed: Geraldo Torres MD at 16:41 EDT Reading Location ID and State: [facility] / [place] Tel , Service support ,
== END | disposition home or self-care (01) ==
LOC: CT 14:36
PROVIDERS: PCP Family Medicine; Referring Provider Psychiatry & Neurology Neurology; Visit Provider Psychiatry & Neurology Neurology
DX: G43.719 Chronic migraine without aura, intractable, without status migrainosus (principal)
CPT/HCPCS: 70450

== ENCOUNTER → 2023-01-18 | Outpatient (CLI) | payer OTHER, SELFPAY ==
--- NOTE | 2023-01-18 07:42 | BI_ITS ---
MAMMOGRAPHY - BILATERAL SCREENING REASON FOR EXAM: Female, 52 years old. Routine annual screening examination. PERTINENT HISTORY: Mother with breast cancer. Prior left stereotactic breast biopsy. TECHNIQUE: Digital bilateral breast estefany (3D mammographic acquisition) in the CC and MLO projections. 2-D mediolateral oblique (MLO) and craniocaudad (CC) views of both breasts were obtained. CAD: Full Field Digital Mammography with Computer Added Detection was performed. COMPARISON: Comparison is made with prior study dated May 22, 2022 and October 12, 2020. FINDINGS: Breast Composition: The breasts are heterogeneously dense, which may obscure small masses. There are no dominant masses or suspicious calcifications. Once again, 2 tissue clip markers are seen in the upper-outer quadrant of the left breast. Stable appearance of the microcalcifications in the upper outer quadrant of the left breast. No other significant abnormalities are identified. There has been no significant change since the prior study. BI/SCRN MAMM (CAD)W/ESTEFANY BILAT IMPRESSION: Stable bilateral screening mammogram. Yearly follow-up mammogram recommended. (A) ASSESSMENT CATEGORY: BIRADS Category 2: Benign. A letter regarding these results will be sent to the patient by the facility within 30 days. Approximately 10% of breast cancers are not detected by mammography. A normal mammogram should not delay biopsy of a clinically suspicious abnormality. [id number] Electronically Signed: Albert Romero MD at 8:38 EDT ,
== END | disposition home or self-care (01) ==
LOC: OPBI 07:41
PROVIDERS: PCP Family Medicine; Referring Provider Obstetrics & Gynecology; Visit Provider Obstetrics & Gynecology
DX: Z12.31 Encounter for screening mammogram for malignant neoplasm of breast (principal)
CPT/HCPCS: 77063; 77067

== ENCOUNTER → 2023-06-26 | Outpatient (CLI) | payer OTHER, SELFPAY ==
--- NOTE | 2023-06-26 07:05 | ECHOD_ITS ---
Version 2 Reason For Study: MVP, Palps Procedure This was a 2D Doppler, Color Flow transthoracic echocardiogram. Myocardial strain analysis was performed in this exam to aid in the assessment of cardiac function. Exam performed in department. Left Ventricle Normal LV size. Left ventricular systolic function is normal. The estimated ejection fraction is 65 %. Normal diastology for age. No regional wall motion abnormalities noted. Right Ventricle Normal RV size. Normal systolic function. Atria Normal left atrium. Normal right atrium. Mitral Valve Bileaflet diffuse mitral valve thickening. Equivocal mitral valve prolapse. Mild (1+) eccentric mitral valve insufficiency. Tricuspid Valve Normal tricuspid valve. Mild tricuspid valve insufficiency. Aortic Valve Trisinus/trileaflet aortic valve. Pulmonic Valve Normal pulmonic valve. Great Vessels Normal aortic root. The pulmonary artery is normal size. Normal inferior vena cava. Pericardium/Pleural No pericardial effusion. MMode/2D Measurements & Calculations LVIDd: 4.1 cm IVSd: 0.75 cm Ao root diam: 2.3 cm LVIDs: 2.6 cm LVPWd: 0.88 cm RVDd: 2.8 cm FS: 36.6 % LAV(MOD-bp): 32.2 ml LVAd ap4: 20.7 cm2 LVAd ap2: 21.4 cm2 LAV(MOD-bp) Indexed: 18.1 ml/m2 LVLd ap4: 7.0 cm LVLd ap2: 7.3 cm LAV(MOD-sp2): 33.2 ml EDV(MOD-sp4): 52.7 ml EDV(MOD-sp2): 52.3 ml LAV(MOD-sp4): 30.6 ml EDV(sp4-el): 52.4 ml EDV(sp2-el): 53.1 ml LVAs ap4: 11.3 cm2 LVAs ap2: 11.9 cm2 LVLs ap4: 5.8 cm LVLs ap2: 6.2 cm ESV(MOD-sp4): 20.0 ml ESV(MOD-sp2): 19.2 ml ESV(sp4-el): 18.6 ml ESV(sp2-el): 19.5 ml EF(MOD-sp4): 62.0 % EF(MOD-sp2): 63.3 % EF(sp4-el): 64.5 % SV(MOD-sp4): 32.6 ml SV(MOD-sp2): 33.1 ml SV(sp4-el): 33.8 ml TAPSE: 2.0 cm LA A4 area: 13.2 cm2 RA A4 area: 10.1 cm2 Time Measurements MV dec time: 0.15 sec Doppler Measurements & Calculations MV E max maverick: 94.8 cm/sec Lat Peak E' Maverick: 12.2 cm/sec Med Peak E' Maverick: 11.6 cm/sec MV A max maverick: 65.5 cm/sec E/E' lat: 7.7 E/E' med: 8.2 MV E/A: 1.4 MV dec slope: 621.1 cm/sec2 Ao V2 max: 150.3 cm/sec LV V1 max: 108.4 cm/sec Ao max P.0 mmHg LV V1 max P.7 mmHg Ao V2 mean: 103.0 cm/sec LV V1 mean P.0 mmHg Ao mean P.9 mmHg LV V1 mean: 83.7 cm/sec Ao V2 VTI: 35.3 cm LV V1 VTI: 25.5 cm AV (velocity ratio): 0.72 PA V2 max: 92.3 cm/sec TR max maverick: 194.2 cm/sec TR max P.1 mmHg ECHO/Echo Complete Interpretation Summary Normal LV size. Left ventricular systolic function is normal. The estimated ejection fraction is 65 %. Trisinus/trileaflet aortic valve. Equivocal mitral valve prolapse. Mild (1+) eccentric mitral valve insufficiency. Normal diastology for age. The global longitudinal strain is normal. The global longitudinal strain = -20. 2 % (normal). Ordering Physician: Brii Kennedy Referring Physician: Brii Kennedy Performed By: Alesha Velasco RDCS
== END | disposition home or self-care (01) ==
LOC: CVS 07:04
PROVIDERS: PCP Nurse Practitioner Family; Referring Provider Nurse Practitioner Gerontology; Visit Provider Nurse Practitioner Gerontology
DX: I34.1 Nonrheumatic mitral (valve) prolapse (principal)
CPT/HCPCS: 93306

== ENCOUNTER → 2024-01-21 | Outpatient (CLI) | payer OTHER, SELFPAY ==
--- NOTE | 2024-01-21 10:26 | BI_ITS ---
MAMMOGRAPHY - BILATERAL SCREENING REASON FOR EXAM: Female, 53 years old. Routine annual screening examination. PERTINENT HISTORY: Mother with breast cancer. Prior left stereotactic breast biopsy. TECHNIQUE: Digital bilateral breast estefany (3D mammographic acquisition) in the CC and MLO projections. 2-D mediolateral oblique (MLO) and craniocaudad (CC) views of both breasts were obtained. CAD: Full Field Digital Mammography with Computer Added Detection was performed. COMPARISON: Comparison is made with prior study dated January 18, 2023 and November 22, 2021. FINDINGS: Breast Composition: The breasts are heterogeneously dense, which may obscure small masses. There are no dominant masses or suspicious calcifications. 2 tissue markers are once again seen in the upper slightly lateral aspect of the left breast. Stable appearance of the microcalcifications in the upper outer quadrant of the left breast. No other significant abnormalities are identified. There has been no significant change since the prior study. BI/SCRN MAMM (CAD)W/ESTEFANY BILAT IMPRESSION: Stable bilateral screening mammogram. Yearly follow-up mammogram recommended. (A) ASSESSMENT CATEGORY: BIRADS Category 2: Benign. A letter regarding these results will be sent to the patient by the facility within 30 days. Approximately 10% of breast cancers are not detected by mammography. A normal mammogram should not delay biopsy of a clinically suspicious abnormality. [id number] Electronically Signed: Albert Romero MD at 12:24 EDT ,
== END | disposition home or self-care (01) ==
LOC: OPBI 10:24
PROVIDERS: PCP Family Medicine; Referring Provider Obstetrics & Gynecology; Visit Provider Obstetrics & Gynecology
DX: Z12.31 Encounter for screening mammogram for malignant neoplasm of breast (principal); Z80.3 Family history of malignant neoplasm of breast
CPT/HCPCS: 77063; 77067

== ENCOUNTER → 2024-01-22 | Outpatient (CLI) | payer OTHER, SELFPAY ==
[2024-01-28 12:08] LABS: HPV APTIMA, High Risk Negative (Negative)
== END | disposition home or self-care (01) ==
PROVIDERS: PCP Family Medicine; Referring Provider Obstetrics & Gynecology; Visit Provider Obstetrics & Gynecology
DX: Z12.4 Encounter for screening for malignant neoplasm of cervix (principal); R30.0 Dysuria
CPT/HCPCS: 87086; 87624; 88175; G0145

== ENCOUNTER → 2024-01-23 | Outpatient (CLI) | payer OTHER, SELFPAY | END | disposition home or self-care (01) | LOC: LAB 09:42 | PROVIDERS: PCP Family Medicine; Referring Provider Obstetrics & Gynecology; Visit Provider Obstetrics & Gynecology | DX: R30.0 Dysuria (principal) | CPT/HCPCS: 87086; 87088 ==

== ENCOUNTER → 2024-07-11 | Outpatient (CLI) | payer OTHER, SELFPAY | END | disposition home or self-care (01) | LOC: BFHLAB 15:48 | PROVIDERS: PCP Family Medicine; Referring Provider Family Medicine; Visit Provider Family Medicine | DX: R82.90 Unspecified abnormal findings in urine (principal) | CPT/HCPCS: 87086 ==

== ENCOUNTER → 2025-01-22 | Outpatient (CLI) | payer OTHER, SELFPAY ==
--- NOTE | 2025-01-22 07:15 | BI_ITS ---
EXAM: SCRN MAMM (CAD)W/ESTEFANY BILAT DATE: 01/22/2025 CLINICAL HISTORY: F, Age 54 y/o , SCREENING BREAST CANCER RISK ASSESSMENT: Has not been calculated. TECHNIQUE: Bilateral screening digital breast tomosynthesis with 2D and 3D images. Computer aided detection. COMPARISON: Prior exam(s) dated 01/21/2024 and 01/18/2023. FINDINGS: TISSUE DENSITY: The breast tissue is composed of scattered area of fibroglandular density. Bilateral Breast Mammographic Findings: There are no suspicious masses, suspicious clustered microcalcifications, architectural distortion or secondary signs of malignancy identified in either breast. Benign-appearing round calcifications are seen in both breasts. Stable nodular masslike densities are seen in both breasts. BI/SCRN MAMM (CAD)W/ESTEFANY BILAT IMPRESSION: Right Breast: BIRADS 2 BENIGN FINDING. Left Breast: BIRADS 2 BENIGN FINDING. OVERALL FINAL ASSESSMENT: BIRADS 2 BENIGN FINDING RECOMMENDATION: Routine annual follow-up in 1 Year A letter with findings and recommendations will be mailed to the patient. Reading Location: [id number]
== END | disposition home or self-care (01) ==
LOC: OPBI 07:11
PROVIDERS: PCP Family Medicine; Referring Provider Obstetrics & Gynecology; Visit Provider Obstetrics & Gynecology
DX: Z12.31 Encounter for screening mammogram for malignant neoplasm of breast (principal)
CPT/HCPCS: 77063; 77067

== ENCOUNTER → 2025-02-12 | Outpatient (CLI) | payer OTHER, SELFPAY ==
--- NOTE | 2025-02-12 11:06 | MRI_ITS ---
EXAM: Noncontrast MRI of the left shoulder. CLINICAL HISTORY: Left shoulder strain/pain. Limited range of motion. No specific injury. COMPARISON: None available TECHNIQUE: Multi planar, multisequence MRI images of the left shoulder were obtained without IV contrast. FINDINGS: No acute fracture or dislocation of the left shoulder. No abnormal marrow replacement of the included osseous structures. There is moderate degenerative change of the acromioclavicular joint. A moderate amount of fluid signal is present in the subacromial/subdeltoid bursa. No Hill-Sachs lesion or bony Bankart deformity. Mild atrophy of the supraspinatus muscle. No os acromiale. The distal subscapularis tendon is intact. The long head of the biceps tendon appears normal in signal and location. No left axillary mass or adenopathy. Mild degenerative change of the left glenohumeral joint. No sizable glenohumeral joint effusion. On images 14 and 15 of the coronal proton density fat saturated sequence, there is a moderate delamination type tear involving the conjoined tendon, a proximally 2.1 cm transverse dimension. There is moderate patchy increased signal and thickening of the distal supraspinatus tendon, likely due to a combination of tendinopathy and partial tearing. There is a probable moderate greater than 50% partial undersurface tear involving the distal supraspinatus tendon. There is also suggestion of focal full-thickness tear of the distal conjoined tendon, without significant retraction. MRI/Upper Ext Joint Only(Routine) IMPRESSION: No acute bony abnormality of the left shoulder. Moderate degenerative change of the left acromioclavicular joint. Mild degener ative change left glenohumeral joint. Moderate patchy increased signal and thickening of the distal supraspinatus and infraspinatus tendons, likely due to a combination of partial tearing and tendinopathy. There is a 2.1 cm delaminatio n type tear of the distal conjoined tendon with a suggestion of tiny focal full-thickness tear near the distal attachment. Moderate greater than 50% partial undersurface tear involving the distal supras pinatus tendon. No retracted full-thickness rotator cuff tear. Moderate fluid signal in the subacromial/subdeltoid bursa. Mild atrophy of the supraspinatus muscle. Reading Location: [facility]
== END | disposition home or self-care (01) ==
LOC: MRI 10:48
PROVIDERS: PCP Family Medicine; Referring Provider Student in an Organized Health Care Education/Training Program; Visit Provider Student in an Organized Health Care Education/Training Program
DX: S46.012A Strain of muscle(s) and tendon(s) of the rotator cuff of left shoulder, initial encounter (principal); M25.512 Pain in left shoulder; X58.XXXA Exposure to other specified factors, initial encounter
CPT/HCPCS: 73221

== ENCOUNTER → 2025-03-18 | Outpatient (CLI) | payer OTHER, SELFPAY | END | disposition home or self-care (01) | LOC: SL 09:05 | PROVIDERS: PCP Family Medicine; Referring Provider Nurse Practitioner Acute Care; Visit Provider Nurse Practitioner Acute Care | DX: Z46.89 Encounter for fitting and adjustment of other specified devices (principal) ==

== ENCOUNTER → 2025-03-26 | Outpatient (CLI) | payer OTHER, SELFPAY ==
--- NOTE | 2025-03-26 17:56 | MRI_ITS ---
PROCEDURE: LOWER EXT JOINT ONLY (ROUTINE) 03/26/2025 REASON FOR EXAM: LEFT KNEE PAIN TECHNIQUE: MRI of the left lower Extremity. Multiplanar and multisequence images were obtained without IV contrast administration. COMPARISON: COMPARISON : None FINDINGS: Effusion: Small knee joint effusion is present. Medial patellar plica. Soft Tissues: Castillo's cyst measuring 4.2 cm in longitudinal dimension and containing internal septations. There is trace edema immediately inferior to this tracking along the superficial aspect of the medial head of the gastrocnemius, as well as edema within the deep soft tissues posterior to the distal femur. Ligaments and Tendons: ACL and PCL are intact. The MCL and lateral collateral ligamentous complex are unremarkable. Popliteus tendon is unremarkable. Menisci: There is signal within the body and posterior horn of the medial meniscus, without definite extension to the articular surface. There is 3 mm of medial meniscal extrusion. Unremarkable lateral meniscus. Cartilage: There is thinning in the patellofemoral compartment with a small segment of full-thickness cartilage loss along the patellar ridge, where there is trace underlying subchondral marrow edema. There is thinning of the cartilage in the medial and lateral compartments. There is very trace marrow edema within the posterior aspect of the medial femoral condyle. MRI/Lower Ext Joint Only (Routine) IMPRESSION: 1. Castillo's cyst measuring 4.2 cm in longitudinal dimension, with findings sugg estive of rupture. 2. Degenerative signal in the medial meniscus, without discrete tear. 3. 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 4. Small knee joint effusion. Reading Location: [facility]
== END | disposition home or self-care (01) ==
LOC: MRI 16:49
PROVIDERS: PCP Family Medicine; Referring Provider Family Medicine; Visit Provider Family Medicine
DX: M25.562 Pain in left knee (principal)
CPT/HCPCS: 73721

== ENCOUNTER 2025-04-13 15:30 | Outpatient (RCR) | payer OTHER, SELFPAY ==
--- NOTE | 2025-03-04 09:35 | HP.PTEVAL_ITS ---
Patient's Visit Information Visit Information Visit Information: ALEKSEY DYE is a 54 year old F referred to Physical Therapy by Dr. Joseph Tapia DO with a diagnosis of L shoulder rot cuff strain. Date of Evaluation: 03/04/25 Physical Therapist: Ben Moser, PT, ATC Visit Plan Frequency: 2x /Week Duration: 1 Week Plan: Issue and instruct pt on HEP of L shoulder rot cuff strengthening and scap stab ex's Subjective Subjective: Pt reports she has had L shoulder pain for approximately 6 mos. Pt reports she tried to put in off, but finally went to the doctor. Pt notes she had an MRI which revealed multiple tears in her L shoulder. Pt reports she is here today to try to avoid surgery. Pt is R hand dominant. Pt denies any tingling or numbness in L UE. Pt reports pain that radiates to the L elbow. Pt denies any PMHx of L shoulder pain. 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 Pt reports she is limited with lifting activity over head head secondary to pain. Pt also notes she is unable to reach behind her back secondary to pain. 3/10 pain while sitting here at rest, and is described at dull and achy. L shoulder pain elevates to 8/10 at worst. Pain L shoulder pain: Pain Intensity (Out of 10): 3 Pain Intensity Range: 8 Objective Objective: Neuro: B UE sensation is WNL to light touch. Palpation: Pt is sore along the supraspinatus distribution. No obvious deformity noted at this time. ROM: R shoulder flex= 160, abd= 160, IR= WNL, ER= 50 degrees; L shoulder flex= 100, abd= 135, IR= moderately limited to belt line, ER= 50 MMT: R shoulder flex= 15, abd= 26, IR= 20, ER= 24 #F; L shoulder flex= 9, abd= 9, IR= 15, ER= 14 #F Special tests: Pos empty can test Balance/Special Test Scores Quick DASH Score: 40.9075 Goals Goal 1:: Pt will be I with HEP Goal Time Frame: 2 Weeks Goal 2:: Decrease L shoulder pain x 50% to aid with work requirements Rehabilitation Potential Physical Therapy Diagnosis: Pt has L shoulder pain, weakness, and limited ROM secondary to L shoulder rot cuff strain Rehabilitation Potential: Good Anticipated Interventions Patient/Client Instruction: Educate patient on: Condition and Plan of Care For the Purpose of:: To improve self management Therapeutic Exercise to Include: Strength training, Endurance training, Active ROM and Scapular Strength/Stabilization For the Purpose of:: To decrease pain, To increase ROM and To improve muscle performance and motor function Cryotherapy (ice pack, ice massage): Yes For the Purpose of:: To decrease pain Text: Thank you for the opportunity to evaluate your patient. For Medicare and Medicare HMO plans, please review the plan of care and approve it. It will need to be FAXED BACK to us at [phone] for Medicare purposes. For Medicare only, by signing this I certify the plan of care. Please let me know if there are questions or concerns regarding this plan of care. Physician Signature: Date:
--- NOTE | 2025-04-13 16:08 | HP.PTDCSUM_ITS ---
Discharge Summary D/C summary: It has been my pleasure to treat ALEKSEY DYE referred by Dr. Joseph Tapia DO, with the diagnosis of L shoulder rot cuff strain for a total of 3 visit(s). Discharge Date: Please see the following information for a summary of their discharge status. Subjective Subjective: Pt reports shoulder is a lot better. Pain L shoulder pain: Pain Intensity (Out of 10): 1 Objective Objective/Function: L shoulder pain 1/10 L shoulder MMT: flex= 14, abd= 19, ER= 15, IR= 22 #F L shoulder ROM: flex= 160, abd= 165, ER= 60, IR= WNL Pt is I with HEP Goals Goal 1:: Pt will be I with HEP Goal 2:: Decrease L shoulder pain x 50% to aid with work requirements Plan Plan: Discharge to [facility] D/C Information d/c sentence: If there are questions or concerns regarding this patient's physical therapy, please feel free to call me at [phone]. Thank you for the referral of this patient. Sincerely, Ben Moser, PT, ATC Balance/Gait/Functional tests Balance/Special Test Scores Quick DASH Score: 0
== END 2025-04-13 19:00 | disposition home or self-care (01) ==
LOC: PT 15:30
PROVIDERS: PCP Family Medicine; Referring Provider Student in an Organized Health Care Education/Training Program; Visit Provider Student in an Organized Health Care Education/Training Program
DX: S46.012D Strain of muscle(s) and tendon(s) of the rotator cuff of left shoulder, subsequent encounter (principal)
CPT/HCPCS: 97110; 97161; 97530